=== PATIENT | male | born 1980 | race Two or more races ===

== ENCOUNTER 2020-07-03 08:27 | Day surgery (SDC) | payer OTHER | END 2020-07-03 13:05 | disposition left against medical advice (07) | LOC: AMB-ENDOS 08:27 | PROVIDERS: ATTEND Colon & Rectal Surgery | DX: K62.89 Other specified diseases of anus and rectum (principal); K64.8 Other hemorrhoids; Z12.11 Encounter for screening for malignant neoplasm of colon; Z20.828 Contact with and (suspected) exposure to other viral communicable diseases ==

== ENCOUNTER 2021-03-01 16:14 | Emergency (ER) | payer OTHER ==
[~2021-03-01] VITALS: Ht 172.7 cm; Wt 68.0 kg
[2021-03-01] MEDS ORDERED: NORFLEX100MG PO (21:17)
[2021-03-01] MEDS ORDERED: IBU800 MG PO (21:17)
== END 2021-03-01 21:28 | disposition home or self-care (01) ==
LOC: ER 16:14
DX: M62.830 Muscle spasm of back (principal); M54.5 Low back pain